=== PATIENT | female | born 1990 | race African-American/Black ===

== ENCOUNTER 2019-05-08 04:59 | Emergency (ER) | payer MEDICAID, OTHER ==
[~2019-05-08] VITALS: Ht 160 cm; Wt 87.0 kg
[2019-05-08 05:56] LABS: BASOPHILS % 0.7 % (0.0-2.0); EOSINOPHILS % 0.4 % (0.0-5.0); HEMATOCRIT. 37.2 % (36.0-48.0); HEMOGLOBIN. 12.3 g/dL (12.0-16.0); MEAN CORPUSCULAR HEMOGLOBIN 27.8 pg (28.0-32.0); MEAN CORPUSCULAR VOLUME 84.4 fL (81.0-99.0); MEAN PLATELET VOLUME 8.1 fl (7.4-10.4); MONOCYTES % 2.9 % (2.0-8.0); PLATELET 313 x1000/uL (130-400); RED BLOOD CELL COUNT 4.41 mill/uL (4.2-5.4); RED CELL DISTRIBUTION WIDTH 14.1 % (11.6-14.6)
[2019-05-08 06:02] LABS: CHLORIDE 108 mEq/L (98-107)
[2019-05-08 06:04] LABS: PROTHROMBIN TIME 10.7 sec (9.6-11.0)
[2019-05-08 07:32] LABS: CLARITY URINE CLEAR (CLEAR); COLOR URINE YELLOW (YELLOW); KETONES URINE NEGATIVE (NEGATIVE); LEUKOCYTE ESTERASE URINE NEGATIVE (NEGATIVE); NITRITE URINE NEGATIVE (NEGATIVE); OCCULT BLOOD URINE 2+ (NEGATIVE); PH URINE 5.5 (4.5-8.0); PROTEIN URINE NEGATIVE (NEGATIVE); SPECIFIC GRAVITY URINE 1.023 (1.005-1.030); UROBILINOGEN URINE 0.2 E.U./dL (0.2-1.0)
[2019-05-08] MEDS ORDERED: SODIUM CHLORIDE 0.9% 1,000 ML IV ONE (08:00)
[2019-05-08] MEDS ORDERED: KETOROLAC 30MG/ML VIAL IV ONE (08:00)
[2019-05-08 09:43] VITALS: BP 91/60
== END 2019-05-08 09:48 | disposition home or self-care (01) ==
LOC: ER 04:59
DX: N94.6 Dysmenorrhea, unspecified (principal); E86.0 Dehydration; R19.7 Diarrhea, unspecified; R55 Syncope and collapse; F12.10 Cannabis abuse, uncomplicated
CPT/HCPCS: 36415; 80053; 81003; 81025; 83690; 85025; 85610; 96361; 96374; 99283; J1885; Z7610